=== PATIENT | male | born 1960 | race Caucasian/White ===

== ENCOUNTER 2016-07-26 09:09 | Emergency (ER) | payer SELFPAY ==
[~2016-07-26] VITALS: Ht 185.4 cm; Wt 92.0 kg
[2016-07-26 09:10] VITALS: BP 155/86; PULSE 74; RESP 20; TEMP 97.7; O2SAT 99
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
[2016-07-26] MEDS ORDERED: BUPIVACAINE HCL PF 0.5% 10 ML VIAL INFIL ONE (11:00)
[2016-07-26] MEDS ORDERED: IBUP800T23 PO (12:04)
--- NOTE | 2016-07-26 14:23 | RADRPT ---
EXAM DATE/TIME: 07/26/2016 11:50 [facility] COMPARISON: FOOT LEFT COMPLETE ([id number]), July 26, 2016, 10:04. INDICATIONS : Post reduction left 5th digit. MEDICAL HISTORY : None. SURGICAL HISTORY : None. ENCOUNTER: Initial ACUITY: 1 day PAIN SCORE: Non-responsive. LOCATION: Left 5th digit FINDINGS: Examination of the fifth digit of the left foot demonstrates partial relocation of the previously zoie ntified fifth MTP dislocation. Foreshortened appearance of the proximal phalanx of the fifth ray I be lieve is due to the abnormal projection associated with dislocation although a fracture deformity can not be completely excluded. CONCLUSION: 1. Partial reduction of the previous fifth MTP dislocation. 2. Foreshortened appearance of the proximal phalanx of the fifth ray may be projectional associated w ith the dislocation although an age-indeterminate fracture deformity cannot be excluded. This is stab le from the pre-reduction images, however. If clinically warranted, CT of the foot could be performed for further characterization. Hilario Sawyer MD on July 26, 2016 at 14:15 Board Certified Radiologist. This report was verified electronically.
== END 2016-07-26 12:29 | disposition home or self-care (01) ==
LOC: NEPB 09:09
DX: S82.65XA Nondisplaced fracture of lateral malleolus of left fibula, initial encounter for closed fracture (principal); S93.125A Dislocation of metatarsophalangeal joint of left lesser toe(s), initial encounter; X50.1XXA Overexertion from prolonged static or awkward postures, initial encounter; Y93.I9 Activity, other involving external motion; Y92.89 Other specified places as the place of occurrence of the external cause
CPT/HCPCS: 28660; 73610; 73630; 73660; 99283; L2114